=== PATIENT | male | born 1995 | race Two or more races ===

== ENCOUNTER → 2020-09-09 | Outpatient (CLI) | payer SELFPAY | END | disposition home or self-care (01) | LOC: LABWHC1 15:31 | PROVIDERS: ATTEND Family Medicine | DX: Z20.828 Contact with and (suspected) exposure to other viral communicable diseases (principal) | CPT/HCPCS: U0003; C9803 ==

== ENCOUNTER 2021-07-26 23:11 | Emergency (ER) | payer OTHER ==
[2021-07-26] MEDS ORDERED: SODIUM CHLORIDE 0.9% 1,000 ML IV STA (23:59)
[2021-07-27 00:48] LABS: Basophils # (A) 0.1 k/uL (0-0.2); Basophils % (A) 1 %; Eosinophils # (A) 0.1 k/uL (0-0.7); Eosinophils % (A) 1 %; HCT 43.3 % (39.0-53.0); HGB 14.4 gm/dL (13.0-17.5); Lymphocytes # (A) 1.3 k/uL (1.0-4.8); Lymphocytes % (A) 14 %; MCH 29.2 pg (25.0-35.0); MCHC 33.2 g/dL (31.0-37.0); MCV 87.9 fL (80.0-100.0); Mean Platelet Volume 9.1; Monocytes # (A) 0.6 k/uL (0-1.0); Monocytes % (A) 7 %; Neutrophils # (A) 7.1 k/uL (1.3-7.7); Neutrophils % (A) 77 %; Platelet Count 223 k/uL (150-450); RBC 4.92 m/uL (4.30-5.90); RDW 12.7 % (11.5-15.5); WBC 9.2 k/uL (3.8-10.6)
[2021-07-27 01:00] LABS: ALT 67 U/L (4-49); AST 43 U/L (17-59); African American GFR (CKD) >90 (>60 ml/min/1.73 sqM); Albumin 4.6 g/dL (3.5-5.0); Alcohol <10 mg/dL; Alkaline Phosphatase 104 U/L (38-126); Anion Gap 10 mmol/L; Blood Urea Nitrogen 8 mg/dL (9-20); Calcium 9.9 mg/dL (8.4-10.2); Carbon Dioxide 24 mmol/L (22-30); Chloride 100 mmol/L (98-107); Glucose 139 mg/dL (74-99); Non-African American GFR(CKD) >90 (>60 ml/min/1.73 sqM); Potassium 3.7 mmol/L (3.5-5.1); Sodium 134 mmol/L (137-145); Total Bilirubin 0.7 mg/dL (0.2-1.3); Total Protein 7.7 g/dL (6.3-8.2)
[2021-07-27 01:02] LABS: Appearance,Urine Clear (Clear); Bacteria,Urine Rare /hpf; Bilirubin,Urine Negative (Negative); Blood,Urine Negative (Negative); Color,Urine Light Yellow; Glucose,Urine (UA) Negative (Negative); Ketones,Urine Negative (Negative); Leukocyte Esterase,Urine Moderate (Negative); Nitrite,Urine Negative (Negative); Protein,Urine Negative (Negative); RBC,Urine <1 /hpf (0-5); Specific Gravity,Urine 1.005 (1.001-1.035); Squamous Epithelial Cell,Urine 1 /hpf (0-4); Urobilinogen,Urine <2.0 mg/dL (<2.0); WBC,Urine 12 /hpf (0-5)
[2021-07-27 01:05] VITALS: RESP 18
[2021-07-27 01:09] LABS: Amphetamine Screen,Urine Detected (NotDetected); Barbiturate Screen,Urine Not Detected (NotDetected); Benzodiazepines Screen,Urine Not Detected (NotDetected); Cocaine Screen,Urine Not Detected (NotDetected); Methadone Screen, Urine Not Detected (NotDetected); Opiate Screen,Urine Not Detected (NotDetected); Oxycodone Screen, Urine Not Detected (NotDetected); Phencyclidine Screen,Urine Not Detected (NotDetected); Tricyclic Antidepressant,Urine Not Detected (NotDetected); Urn Cannabinoid Scrn Detected (NotDetected)
--- NOTE | 2021-07-27 02:02 | ED ---
General Adult HPI - General Chief complaint: Dizziness Stated complaint: Dizziness Time Seen by Provider: 07/26/21 23:47 Source: patient, family, RN notes reviewed Mode of arrival: wheelchair Limitations: no limitations - History of Present Illness Initial comments: Patient is a 26-year-old male presenting to the emergency Department with complaints of some lightheadedness, dizziness, chest heaviness that started after smoking marijuana this evening. He states he also was drinking throughout the day, taking Adderall for the last few days. He states he is not prescribed Adderall. He drank about 5 drinks throughout the day. He denies any falls or trauma. He states he normally smokes marijuana but does not usually feel like this. He denies any pertinent past medical history, takes no medications. He denies any other drug use. He denies any chest pain at this time, no difficulty breathing. He denies any nausea or vomiting. No abdominal pain. He has no further complaints at this time. Upon arrival to the ER, his vitals are stable. - Related Data Previous Rx's Medication Instructions Recorded Cephalexin [Keflex] 500 mg PO Q6HR 7 Days #28 cap 07/27/21 Allergies Allergy/AdvReac Type Severity Reaction Status Date / Time No Known Allergies Allergy Verified 07/26/21 23:31 Review of Systems ROS Statement: Those systems with pertinent positive or pertinent negative responses have been documented in the HPI. ROS Other: All systems not noted in ROS Statement are negative. Past Medical History Past Medical History: No Reported History History of Any Multi-Drug Resistant Organisms: None Reported Past Surgical History: No Surgical Hx Reported Past Psychological History: No Psychological Hx Reported Smoking Status: Never smoker Past Alcohol Use History: Daily Past Drug Use History: Marijuana General Exam - General Exam Comments Initial Comments: GENERAL: Patient is well-developed and well-nourished. Patient is nontoxic and in no acute distress. HEAD: Atraumatic, normocephalic. EYES: Pupils equal round and reactive to light, extraocular movements intact, sclera anicteric, conjunctiva are normal. Eyelids were unremarkable. ENT: Nares patent, oropharynx clear without exudates. Moist mucous membranes. NECK: Normal range of motion, supple without lymphadenopathy or JVD. LUNGS: Unlabored respirations. Breath sounds clear to auscultation bilaterally and equal. No wheezes rales or rhonchi. HEART: Regular rate and rhythm without murmurs, rubs or gallops. ABDOMEN: Soft, nontender, normoactive bowel sounds. No guarding, no rebound. No masses appreciated. : Deferred MUSCULOSKELETAL: Normal extremities with adequate strength and normal range of motion, no pitting or edema. No clubbing or cyanosis. NEUROLOGICAL: Patient is alert and oriented x 3. Motor and sensory are also intact. Cranial nerves II through XII grossly intact. Symmetrical smile. Normal speech, normal gait. PSYCH: Normal mood, normal affect. SKIN: Warm, Dry, normal turgor, no rashes or lesions noted. Course Vital Signs 07/26/21 07/27/21 07/27/21 23:27 00:50 02:18 Temperature 98.5 F 97.9 F Pulse Rate 104 H 90 68 Respiratory 20 18 18 Rate Blood Pressure 163/95 142/82 132/84 O2 Sat by Pulse 99 99 98 Oximetry EKG Findings - EKG Comments: EKG Findings:: Normal sinus rhythm, normal ECG, no signs of acute process. Ventricular rate 90, AL interval 178, QT 358. Medical Decision Making - Medical Decision Making Patient is a 26-year-old male arriving with lightheadedness, dizziness and chest heaviness after he was smoking marijuana today. He also admits to drinking alcohol and taking Adderall for the last 2-3 days. He does not normally take Adderall, is not prescribed this. He denies any other drug use. At the time examination, he has no chest pain, no real complaints other than feeling "off." His vitals are stable, his exam is unremarkable, EKG shows normal sinus rhythm. Labs are all within normal limits, troponin is negative, urine did show moderate leukocyte Estrace, 12 wbc's and cleansed. I did send for urine culture. Denies any concerns for STDs, I did add on a cardiac and chlamydia just for thoroughness. I will start him on Keflex for possible UTI. Toxicology is positive for amphetamines and marijuana, serum alcohol is normal. Patient received some fluids and reports improvement of symptoms. I discussed with him to not combine drugs and to not take her prescription drugs that were not prescribed to him. He is agreeable to this. He is stable for discharge. Follow up with his family doctor. Return parameters were discussed with him and he verbalized understanding. Case discussed with Dr. Branch. - Lab Data Result diagrams: 07/27/21 00:37 07/27/21 00:37 Lab Results 07/27/21 07/27/21 07/27/21 Range/Units 00:37 00:37 00:37 WBC 9.2 (3.8-10.6) k/uL RBC 4.92 (4.30-5.90) m/uL Hgb 14.4 (13.0-17.5) gm/dL Hct 43.3 (39.0-53.0) % MCV 87.9 (80.0-100.0) fL MCH 29.2 (25.0-35.0) pg MCHC 33.2 (31.0-37.0) g/dL RDW 12.7 (11.5-15.5) % Plt Count 223 (150-450) k/uL MPV 9.1 Neutrophils % 77 % Lymphocytes % 14 % Monocytes % 7 % Eosinophils % 1 % Basophils % 1 % Neutrophils # 7.1 (1.3-7.7) k/uL Lymphocytes # 1.3 (1.0-4.8) k/uL Monocytes # 0.6 (0-1.0) k/uL Eosinophils # 0.1 (0-0.7) k/uL Basophils # 0.1 (0-0.2) k/uL Sodium 134 L (137-145) mmol/L Potassium 3.7 (3.5-5.1) mmol/L Chloride 100 (98-107) mmol/L Carbon Dioxide 24 (22-30) mmol/L Anion Gap 10 mmol/L BUN 8 L (9-20) mg/dL Creatinine 0.88 (0.66-1.25) mg/dL Est GFR (CKD-EPI)AfAm >90 (>60 ml/min/1.73 sqM) Est GFR (CKD-EPI)NonAf >90 (>60 ml/min/1.73 sqM) Glucose 139 H (74-99) mg/dL Calcium 9.9 (8.4-10.2) mg/dL Total Bilirubin 0.7 (0.2-1.3) mg/dL AST 43 (17-59) U/L ALT 67 H (4-49) U/L Alkaline Phosphatase 104 (38-126) U/L Troponin I (0.000-0.034) ng/mL Total Protein 7.7 (6.3-8.2) g/dL Albumin 4.6 (3.5-5.0) g/dL Urine Color Light Yellow Urine Appearance Clear (Clear) Urine pH 6.0 (5.0-8.0) Ur Specific [place] 1.005 (1.001-1.035) Urine Protein Negative (Negative) Urine Glucose (UA) Negative (Negative) Urine Ketones Negative (Negative) Urine Blood Negative (Negative) Urine Nitrite Negative (Negative) Urine Bilirubin Negative (Negative) Urine Urobilinogen <2.0 (<2.0) mg/dL Ur Leukocyte Esterase Moderate H (Negative) Urine RBC <1 (0-5) /hpf Urine WBC 12 H (0-5) /hpf Urine WBC Clumps Rare H (None) /hpf Ur Squamous Epith Cells 1 (0-4) /hpf Urine Bacteria Rare H (None) /hpf Urine Opiates Screen Not Detected (NotDetected) Ur Oxycodone Screen Not Detected (NotDetected) Urine Methadone Screen Not Detected (NotDetected) Ur Propoxyphene Screen Not Detected (NotDetected) Ur Barbiturates Screen Not Detected (NotDetected) U Tricyclic Antidepress Not Detected (NotDetected) Ur Phencyclidine Scrn Not Detected (NotDetected) Ur Amphetamines Screen Detected H (NotDetected) U Methamphetamines Scrn Not Detected (NotDetected) U Benzodiazepines Scrn Not Detected (NotDetected) Urine Cocaine Screen Not Detected (NotDetected) U Marijuana (THC) Screen Detected H (NotDetected) Serum Alcohol <10 mg/dL 07/27/21 Range/Units 00:37 WBC (3.8-10.6) k/uL RBC (4.30-5.90) m/uL Hgb (13.0-17.5) gm/dL Hct (39.0-53.0) % MCV (80.0-100.0) fL MCH (25.0-35.0) pg MCHC (31.0-37.0) g/dL RDW (11.5-15.5) % Plt Count (150-450) k/uL MPV Neutrophils % % Lymphocytes % % Monocytes % % Eosinophils % % Basophils % % Neutrophils # (1.3-7.7) k/uL Lymphocytes # (1.0-4.8) k/uL Monocytes # (0-1.0) k/uL Eosinophils # (0-0.7) k/uL Basophils # (0-0.2) k/uL Sodium (137-145) mmol/L Potassium (3.5-5.1) mmol/L Chloride (98-107) mmol/L Carbon Dioxide (22-30) mmol/L Anion Gap mmol/L BUN (9-20) mg/dL Creatinine (0.66-1.25) mg/dL Est GFR (CKD-EPI)AfAm (>60 ml/min/1.73 sqM) Est GFR (CKD-EPI)NonAf (>60 ml/min/1.73 sqM) Glucose (74-99) mg/dL Calcium (8.4-10.2) mg/dL Total Bilirubin (0.2-1.3) mg/dL AST (17-59) U/L ALT (4-49) U/L Alkaline Phosphatase (38-126) U/L Troponin I <0.012 (0.000-0.034) ng/mL Total Protein (6.3-8.2) g/dL Albumin (3.5-5.0) g/dL Urine Color Urine Appearance (Clear) Urine pH (5.0-8.0) Ur Specific [place] (1.001-1.035) Urine Protein (Negative) Urine Glucose (UA) (Negative) Urine Ketones (Negative) Urine Blood (Negative) Urine Nitrite (Negative) Urine Bilirubin (Negative) Urine Urobilinogen (<2.0) mg/dL Ur Leukocyte Esterase (Negative) Urine RBC (0-5) /hpf Urine WBC (0-5) /hpf Urine WBC Clumps (None) /hpf Ur Squamous Epith Cells (0-4) /hpf Urine Bacteria (None) /hpf Urine Opiates Screen (NotDetected) Ur Oxycodone Screen (NotDetected) Urine Methadone Screen (NotDetected) Ur Propoxyphene Screen (NotDetected) Ur Barbiturates Screen (NotDetected) U Tricyclic Antidepress (NotDetected) Ur Phencyclidine Scrn (NotDetected) Ur Amphetamines Screen (NotDetected) U Methamphetamines Scrn (NotDetected) U Benzodiazepines Scrn (NotDetected) Urine Cocaine Screen (NotDetected) U Marijuana (THC) Screen (NotDetected) Serum Alcohol mg/dL Disposition Clinical Impression: Lightheadedness, UTI (urinary tract infection) Disposition: HOME SELF-CARE Condition: Stable Instructions (If sedation given, give patient instructions): Dizziness (ED) Additional Instructions: Please return to the Emergency Department if symptoms worsen or any other concerns. Take antibiotic as prescribed. Discontinue use of multiple drugs. Follow-up with your family doctor. Prescriptions: Cephalexin [Keflex] 500 mg PO Q6HR 7 Days #28 cap Is patient prescribed a controlled substance at d/c from ED?: No Referrals: None,Stated [Primary Care Provider] - 1-2 days Time of Disposition: 02:02
[2021-07-27 02:20] VITALS: BP 132/84; PULSE 68; TEMP 97.9
[2021-07-28 13:32] LABS: C. trachomatis,PCR Negative (Neg,Equiv); Chlamydia trachomatis Source Urine; N. gonorrhoeae,PCR Negative (Neg,Equiv); Neisseria Source Urine
== END 2021-07-27 02:18 | disposition home or self-care (01) ==
LOC: EC 23:11
DX: R42 Dizziness and giddiness (principal); N39.0 Urinary tract infection, site not specified
CPT/HCPCS: 36415; 80053; 80306; 80320; 81001; 84484; 85025; 87086; 87491; 87591; 93005; 96360; 99284

== ENCOUNTER → 2021-08-28 | Outpatient (CLI) | payer BC ==
--- NOTE | 2021-08-29 08:32 | XR ---
Right knee HISTORY: Pain 3 views the right knee Bone mineralization, joint spaces, alignment are maintained with the exception of some possible mild joint space loss medially. There is mild spurring medial compartment. Suprapatellar increased density may be indicative of small joint effusion. IMPRESSION: There may be small joint effusion. Knee MRI may be of benefit. Mild osteoarthritic change is questioned.
== END ==
LOC: RADXRMAIN 17:03
PROVIDERS: ATTEND Family Medicine
DX: M25.561 Pain in right knee (principal)

== ENCOUNTER 2023-04-28 03:58 | Emergency (ER) | payer BC, OTHER ==
[2023-04-28 04:04] VITALS: TEMP 98
--- NOTE | 2023-04-28 04:44 | ED ---
Upper Extremity HPI - General Chief Complaint: Extremity Injury, Upper Stated Complaint: Shoulder dislocation Time Seen by Provider: 04/28/23 04:37 Source: patient, EMS Mode of arrival: EMS Limitations: no limitations - History of Present Illness Initial Comments: This patient is a 28-year-old man who presents to have evaluation of left shoulder injury. The patient states she had been drinking and then lost balance and fell. He states that he landed on the anterolateral aspect of the shoulder. He noted pain and swelling. Pain worse with movement of the left arm. Slightly better with supporting the left arm. No weakness or numbness into the hand or fingers area MD Complaint: Injury to:: left, shoulder -: minutes(s) Other Extremity Injury: Shoulder: Left Other Injuries: none Handedness: right Place: outdoors Improves With: none Worsens With: movement of extremity Context: fall Associated Symptoms: denies other symptoms - Related Data Previous Rx's Medication Instructions Recorded Cephalexin [Keflex] 500 mg PO Q6HR 7 Days #28 cap 07/27/21 HYDROcodone/APAP 5-325MG [[place] 1 tab PO Q4HR PRN 3 Days #18 tab 04/28/23 5-325] Ibuprofen [Motrin] 600 mg PO Q8HR PRN #20 tab 04/28/23 Allergies Allergy/AdvReac Type Severity Reaction Status Date / Time No Known Allergies Allergy Verified 07/26/21 23:31 Review of Systems ROS Statement: Those systems with pertinent positive or pertinent negative responses have been documented in the HPI. ROS Other: All systems not noted in ROS Statement are negative. Constitutional: Denies: fever, weakness Respiratory: Denies: cough, dyspnea Cardiovascular: Denies: chest pain, palpitations, syncope Gastrointestinal: Denies: abdominal pain, vomiting Musculoskeletal: Reports: as per HPI, arthralgia. Denies: back pain Neurological: Denies: headache, weakness, numbness, paresthesias Past Medical History Past Medical History: No Reported History History of Any Multi-Drug Resistant Organisms: None Reported Past Surgical History: No Surgical Hx Reported Past Psychological History: No Psychological Hx Reported Smoking Status: Never smoker Past Alcohol Use History: Heavy Past Drug Use History: Marijuana General Exam Limitations: no limitations General appearance: alert, in no apparent distress Head exam: Present: atraumatic, normocephalic Eye exam: Present: normal appearance. Absent: scleral icterus, conjunctival injection Neck exam: Present: normal inspection, full ROM. Absent: tenderness Respiratory exam: Present: normal lung sounds bilaterally. Absent: respiratory distress, wheezes, rales, rhonchi, stridor, chest wall tenderness, accessory muscle use Cardiovascular Exam: Present: regular rate, normal rhythm, normal heart sounds. Absent: systolic murmur, diastolic murmur, rubs, gallop GI/Abdominal exam: Present: soft. Absent: distended, tenderness, guarding, rebound, rigid, mass Extremities exam: Present: tenderness, normal capillary refill, other (The patient has deformity that appears to be before meals separation. There is tenderness at the before meals joint. There is no bony tenderness or deformity of the humerus. The patient does tolerate rotation at the humerus. Neurovascular exam of the left upper extremity is normal). Absent: full ROM Back exam: Present: normal inspection. Absent: vertebral tenderness Neurological exam: Present: alert. Absent: motor sensory deficit Skin exam: Present: warm, dry, intact, normal color. Absent: rash Course Vital Signs 04/28/23 04/28/23 04:00 05:38 Temperature 98.0 F 98.0 F Pulse Rate 81 85 Respiratory 16 18 Rate Blood Pressure 131/76 128/79 O2 Sat by Pulse 97 99 Oximetry Medical Decision Making - Medical Decision Making The patient had left shoulder x-ray which does show before meals joint separation, by my interpretation Was pt. sent in by a medical professional or institution ([facility], [facility], urgent care, hospital, or skilled nursing...) When possible be specific @ -[No] Did you speak to anyone other than the patient for history (EMS, parent, family, police, friend...)? What history was obtained from this source @ -[No] Did you review nursing and triage notes (agree or disagree)? Why? @ -[I reviewed and agree with nursing and triage notes] Were old charts reviewed (outside hosp., previous admission, EMS record, old EKG, old radiological studies, urgent care reports/EKG's, skilled nursing records)? Report findings @ -[No old charts were reviewed] Differential Diagnosis (chest pain, altered mental status, abdominal pain women, abdominal pain men, vaginal bleeding, weakness, fever, dyspnea, syncope, headache, dizziness, GI bleed, back pain, seizure, CVA, palpatations, mental health, musculoskeletal)? @ -[Differential Musculoskeletal Muscular strain, contusion, ligament sprain, fracture, arthritis, septic arthritis, bursitis, cellulitis, muscle spasm, nerve compression, DVT, arterial occlusion, herpes zoster, electrolyte abnormality, tumor.... This is not meant to be in all inclusive list EKG interpreted by me (3pts min.). @ -[ X-rays interpreted by me (1pt min.). @ -[I interpreted as above CT interpreted by me (1pt min.). @ -[None done] U/S interpreted by me (1pt. min.). @ -[None done] What testing was considered but not performed or refused? (CT, X-rays, U/S, labs)? Why? @ -[None] What meds were considered but not given or refused? Why? @ -[None] Did you discuss the management of the patient with other professionals (professionals i.e. , PA, [facility], lab, RT, psych nurse, clinical social work aide, kitchen aide, teacher, seismology technical officer, home health care case manager)? Give summary @ -[No] Was smoking cessation discussed for >3mins.? @ -[No] Was critical care preformed (if so, how long)? @ -[No] Were there social determinants of health that impacted care today? How? (Homelessness, low income, unemployed, alcoholism, drug addiction, transportation, low edu. Level, literacy, decrease access to med. care, assisted, rehab)? @ -[No] Was there de-escalation of care discussed even if they declined (Discuss DNR or withdrawal of care, Hospice)? DNR status @ -[No] What co-morbidities impacted this encounter? (DM, HTN, Smoking, COPD, CAD, Cancer, CVA, ARF, Chemo, Hep., AIDS, mental health diagnosis, sleep apnea, morbid obesity)? @ -[None] Was patient admitted / discharged? Hospital course, mention meds given and route, prescriptions, significant lab abnormalities, going to OR and other pertinent info. @ -[The patient is discharged to follow-up with orthopedics as outpatient. We discussed appropriate return parameters and follow-up Undiagnosed new problem with uncertain prognosis? @ -[No] Drug Therapy requiring intensive monitoring for toxicity (Heparin, Nitro, Insulin, Cardizem)? @ -[No] Were any procedures done? @ -[No] Diagnosis/symptom? @ -[Acute fall injury Acute before meals joint separation, left Acute, or Chronic, or Acute on Chronic? @ -[default] Uncomplicated (without systemic symptoms) or Complicated (systemic symptoms)? @ -[Uncomplicated Side effects of treatment? @ -[No] Exacerbation, Progression, or Severe Exacerbation? @ -[No] Poses a threat to life or bodily function? How? (Chest pain, [place], [place], pneumonia, PE, COPD, DKA, ARF, appy, cholecystitis, CVA, Diverticulitis, Homicidal, Suicidal, threat to staff... and all critical care pts) @ -[No] Disposition Clinical Impression: Shoulder separation Disposition: HOME SELF-CARE Condition: Good Instructions (If sedation given, give patient instructions): Acromioclavicular Separation (ED) Prescriptions: Ibuprofen [Motrin] 600 mg PO Q8HR PRN #20 tab PRN Reason: Pain HYDROcodone/APAP 5-325MG [[place] 5-325] 1 tab PO Q4HR PRN 3 Days #18 tab PRN Reason: Pain Is patient prescribed a controlled substance at d/c from ED?: No Referrals: Andrzej Kendall MD [STAFF PHYSICIAN] - 1-2 days Yaniv Ma DO [Doctor of Osteopathic Medicine] - 1-2 days
--- NOTE | 2023-04-28 04:53 | XR ---
EXAM: XR Left Shoulder Complete, 2 or More Views CLINICAL HISTORY: ITS.REASON XR Reason: fall, deformity TECHNIQUE: Two or more views of the left shoulder. COMPARISON: No relevant prior studies available. FINDINGS: Bones/joints: AC separation with superior migration of the clavicle relative to the acromion. Significant widening of the coracoclavicular joint (23 mm). Anatomic alignment of the glenohumeral joint. No acute fracture. Soft tissues: Unremarkable. IMPRESSION: AC separation with CC disruption (grade 5 separation)
[2023-04-28] MEDS ORDERED: Acetaminophen-Codeine 300-30mg TAB PO STA (04:59)
[2023-04-28] MEDS ORDERED: IBUPROFEN 600 MG TAB PO STA (04:59)
[2023-04-28 05:40] VITALS: BP 128/79; PULSE 85; RESP 18
== END 2023-04-28 05:40 | disposition home or self-care (01) ==
LOC: EC 03:58
DX: S43.005A Unspecified dislocation of left shoulder joint, initial encounter (principal); F12.90 Cannabis use, unspecified, uncomplicated; W19.XXXA Unspecified fall, initial encounter
CPT/HCPCS: 99284

== ENCOUNTER 2024-08-02 15:48 | Emergency (ER) | payer OTHER ==
[2024-08-02 15:52] VITALS: PULSE 74
--- NOTE | 2024-08-02 16:07 | ED ---
Lower Extremity Injury HPI - General Chief Complaint: Extremity Injury, Lower Stated Complaint: R knee pain Time Seen by Provider: 08/02/24 16:01 Source: patient, RN notes reviewed Mode of arrival: wheelchair Limitations: no limitations - History of Present Illness Initial Comments: 29-year-old male presents emergency department chief complaint of right knee pain. States that last week he was standing on a stepstool at work and he went to step down and stepped on a saw that was on the ground which caused him to twist his right knee. He denies any injuries at the time of this event. Over the past week he has been experiencing worsening pain in the right knee that is exacerbated with prolonged standing and with flexion and climbing stairs. He h as been taking Motrin and occasionally Tylenol at home with some relief. Patient was supposed to have an appointment today with research quality assurance specialist outpatient however when he arrived for his appointment he was informed that they do not take his insurance. Additionally, patient states that he has had meniscus injuries to his right knee in the past with no previous surgeries. - Related Data Previous Rx's Medication Instructions Recorded Cephalexin [Keflex] 500 mg PO Q6HR 7 Days #28 cap 07/27/21 HYDROcodone/APAP 5-325MG [[place] 1 tab PO Q4HR PRN 3 Days #18 tab 04/28/23 5-325] Ibuprofen [Motrin] 600 mg PO Q8HR PRN #20 tab 04/28/23 Allergies Allergy/AdvReac Type Severity Reaction Status Date / Time No Known Allergies Allergy Verified 08/02/24 15:52 Review of Systems ROS Statement: Those systems with pertinent positive or pertinent negative responses have been documented in the HPI. ROS Other: All systems not noted in ROS Statement are negative. Past Medical History Past Medical History: No Reported History History of Any Multi-Drug Resistant Organisms: None Reported Past Surgical History: No Surgical Hx Reported Past Psychological History: No Psychological Hx Reported Smoking Status: Never smoker Past Alcohol Use History: Heavy Past Drug Use History: Marijuana General Exam Limitations: no limitations General appearance: alert, in no apparent distress ENT exam: Present: normal exam, mucous membranes moist Neck exam: Present: normal inspection. Absent: tenderness, meningismus, lymphadenopathy Respiratory exam: Present: normal lung sounds bilaterally. Absent: respiratory distress, wheezes, rales, rhonchi, stridor Cardiovascular Exam: Present: regular rate, normal rhythm, normal heart sounds. Absent: systolic murmur, diastolic murmur, rubs, gallop, clicks GI/Abdominal exam: Present: soft, normal bowel sounds. Absent: distended, tenderness, guarding, rebound, rigid Right Knee exam: Present: normal inspection, full ROM (pain with ROM), tenderness (medial knee), pain/laxity with valgus, pain/laxity with varus Neurovascular tendon exam: Present: no vascular compromise. Absent: pulse deficit, abnormal cap refill Gait: observed and normal Back exam: Present: normal inspection Skin exam: Present: warm, dry, intact, normal color. Absent: rash Course Vital Signs 08/02/24 08/02/24 15:49 17:43 Temperature 97.8 F 98.4 F Pulse Rate 74 74 Respiratory 18 16 Rate Blood Pressure 117/73 120/80 O2 Sat by Pulse 97 98 Oximetry Medical Decision Making - Medical Decision Making Was pt. sent in by a medical professional or institution (, PA, HAND PATCHER, urgent care, hospital, or half-way...) When possible be specific @ -No Did you speak to anyone other than the patient for history (EMS, parent, family, police, friend...)? What history was obtained from this source @ -No Did you review nursing and triage notes (agree or disagree)? Why? @ -I reviewed and agree with nursing and triage notes Were old charts reviewed (outside hosp., previous admission, EMS record, old EKG, old radiological studies, urgent care reports/EKG's, half-way records)? Report findings @ -No old charts were reviewed Differential Diagnosis (chest pain, altered mental status, abdominal pain women, abdominal pain men, vaginal bleeding, weakness, fever, dyspnea, syncope, headache, dizziness, GI bleed, back pain, seizure, CVA, palpatations, mental health, musculoskeletal)? @ -Differential Musculoskeletal Muscular strain, contusion, ligament sprain, fracture, arthritis, septic arthritis, bursitis, cellulitis, muscle spasm, nerve compression, DVT, arterial occlusion, herpes zoster, electrolyte abnormality, tumor.... This is not meant to be in all inclusive list EKG interpreted by me (3pts min.). @ -none X-rays interpreted by me (1pt min.). @ -XR the right knee no acute fracture dislocation with a small suprapatellar effusion. CT interpreted by me (1pt min.). @ -None done U/S interpreted by me (1pt. min.). @ -None done What testing was considered but not performed or refused? (CT, X-rays, U/S, labs)? Why? @ -None What meds were considered but not given or refused? Why? @ -None Did you discuss the management of the patient with other professionals (professionals i.e. , PA, HAND PATCHER, lab, RT, psych nurse, social service liaison, wax pumper, teacher, [place] police officer, classification case manager)? Give summary @ -No Was smoking cessation discussed for >3mins.? @ -No Was critical care preformed (if so, how long)? @ -No Were there social determinants of health that impacted care today? How? (Homelessness, low income, unemployed, alcoholism, drug addiction, transportation, low edu. Level, literacy, decrease access to med. care, care home, rehab)? @ -No Was there de-escalation of care discussed even if they declined (Discuss DNR or withdrawal of care, Hospice)? DNR status @ -No What co-morbidities impacted this encounter? (DM, HTN, Smoking, COPD, CAD, Cancer, CVA, ARF, Chemo, Hep., AIDS, mental health diagnosis, sleep apnea, morbid obesity)? @ -None Was patient admitted / discharged? Hospital course, mention meds given and route, prescriptions, significant lab abnormalities, going to OR and other pertinent info. @ -discharged. 29-year-old male with right knee pain. Patient's pain is exac erbated with valgus and varus stress/to palpation of the medial knee. Patient's pain is exacerbated with ambulation. And flexion as well. There are no neurovascular deficits. Patient provided dose of Toradol pending x-ray imaging results. He is agree with this plan. X-ray negative for acute process. Open the patient follows up with primary care provider or research quality assurance specialist for further evaluation for potential MRI for further evaluation of the soft tissue. All questions answered at bedside and strict return parameters discussed with the patient he is verbalized understanding. Patient is provided with a work note as well. Discussed with Dr. Galvan Undiagnosed new problem with uncertain prognosis? @ -No Drug Therapy requiring intensive monitoring for toxicity (Heparin, Nitro, Insulin, Cardizem)? @ -No Were any procedures done? @ -No Diagnosis/symptom? @ -Right knee pain Acute, or Chronic, or Acute on Chronic? @ -Acute Uncomplicated (without systemic symptoms) or Complicated (systemic symptoms)? @ -Uncomplicated Side effects of treatment? @ -No Exacerbation, Progression, or Severe Exacerbation? @ -No Poses a threat to life or bodily function? How? (Chest pain, [place], [place], pneumonia, PE, COPD, DKA, ARF, appy, cholecystitis, CVA, Diverticulitis, Homicidal, Suicidal, threat to staff... and all critical care pts) @ -No Disposition Clinical Impression: Knee pain, acute Disposition: HOME SELF-CARE Condition: Good Instructions (If sedation given, give patient instructions): Knee Pain (ED) Additional Instructions: Please return to the Emergency Department if symptoms worsen or any other concerns. Recommend follow-up outpatient primary care provider for further evaluation and possible scheduled for MRI for further evaluation of the soft tissue of the right knee. Is patient prescribed a controlled substance at d/c from ED?: No Referrals: Andrzej Kendall MD [Primary Care Provider] - 1-2 days Bin Forrest MD [STAFF PHYSICIAN] - 1-2 days Time of Disposition: 17:21
[2024-08-02] MEDS: KETOROLAC 15 MG/ML 1 ML VIAL IM STA (16:21)
--- NOTE | 2024-08-02 17:11 | XR ---
Evaluation EXAMINATION TYPE: XR knee complete RT DATE OF EXAM: 08/02/2024 CLINICAL HISTORY: Is TECHNIQUE: Three views of the right knee are obtained. COMPARISON: None. FINDINGS: There is no acute fracture/dislocation. The tri-compartment joint spaces appear within no rmal limits. The overlying soft tissue appears unremarkable. Small suprapatellar effusion. IMPRESSION: There is no acute fracture or dislocation.ICD 10 NO FRACTURE, INITIAL EVALUATION [facility], , 08/02/2024 5:09 PM
[2024-08-02 17:44] VITALS: BP 120/80; RESP 16; TEMP 98.4
== END 2024-08-02 17:44 | disposition home or self-care (01) ==
LOC: EC 15:48
CPT/HCPCS: 96372; 99282

== ENCOUNTER → 2024-08-14 | Outpatient (CLI) | payer MEDICARE ==
--- NOTE | 2024-08-14 22:36 | MR ---
EXAMINATION TYPE: MR knee RT wo con DATE OF EXAM: 08/14/2024 COMPARISON: Right knee x-ray August 02, 2024 HISTORY: Right knee pain for 1 month due to stepping on saw while coming down ladder. TECHNIQUE: Multiplanar, multisequence images of the knee is performed without IV contrast. FINDINGS: MEDIAL MENISCUS: Anterior and posterior horns are intact without tear. LATERAL MENISCUS: Anterior and posterior horns are intact without tear. CRUCIATE LIGAMENTS: The posterior cruciate ligaments is intact and unremarkable. Nonvisualization of normal anterior cruciate ligament consistent with complete tear. COLLATERAL LIGAMENTS: The medial collateral ligament and lateral collateral ligament complex are inta ct. Mild fluid signal surrounds medial collateral ligament particularly deeper fibers. EXTENSOR MECHANISM: Visualized quadriceps and patellar tendons are intact. EFFUSION: Moderate to large sized suprapatellar joint effusion. POPLITEAL CYST: No popliteal/yanez cyst. TRICOMPARTMENT SPACES: Tricompartment Joint spaces are preserved. No significant spurring is seen. CARTILAGE: Tricompartmental articular cartilage is maintained. BONE MARROW SIGNAL: Tiny subchondral cyst anterior central proximal tibia sagittal image 15. OTHER: Moderate superficial infrapatellar subcutaneous edema. IMPRESSION: 1. Complete ACL tear. 2. Moderate to large-sized suprapatellar joint effusion. 3. Mild MCL sprain injury. [facility], , 08/14/2024 10:34 PM
== END | disposition home or self-care (01) ==
LOC: RADMRIMAIN 17:54
PROVIDERS: ATTEND Orthopaedic Surgery

== ENCOUNTER → 2024-10-07 | Outpatient (CLI) | payer MEDICARE ==
[2024-10-08 08:56] LABS: Anion Gap 9.3 mmol/L (4.00-12.00); Carbon Dioxide 26.7 mmol/L (21.6-31.8); Potassium 4.6 mmol/L (3.5-5.5)
[2024-10-08 10:04] LABS: Basophils # (A) 0.04 X 10*3/uL (0.00-0.10); Basophils % (A) 0.6 %; Eosinophils % (A) 1.6 %; HCT 44.1 % (39.6-50.0); HGB 14.3 g/dL (13.0-17.0); Lymphocytes # (A) 2.23 X 10*3/uL (0.90-5.00); Lymphocytes % (A) 36.1 %; MCH 29.3 pg (27.0-32.0); MCHC 32.4 g/dL (32.0-37.0); MCV 90.4 FL (80.0-97.0); Mean Platelet Volume 12.5 FL (9.5-12.2); Monocytes # (A) 0.65 X 10*3/uL (0.20-1.00); Monocytes % (A) 10.5 %; NRBC Per 100 WBC 0 X 10*3/uL (0.00-0.01); Neutrophils # (A) 3.14 X 10*3/uL (1.80-7.70); Neutrophils % (A) 50.9 %; Platelet Count 239 X 10*3/uL (140-440); RBC 4.88 X 10*6/uL (4.40-5.60); RDW 12.5 % (11.5-14.5); WBC 6.18 X 10*3/uL (4.50-10.00)
== END | disposition home or self-care (01) ==
LOC: LABWHC1 09:44
PROVIDERS: ATTEND Orthopaedic Surgery
DX: Z01.812 Encounter for preprocedural laboratory examination (principal); S83.511A Sprain of anterior cruciate ligament of right knee, initial encounter; X58.XXXA Exposure to other specified factors, initial encounter
CPT/HCPCS: 36415; 80051; 85025

== ENCOUNTER 2024-10-12 07:58 | Day surgery (SDC) | payer MEDICARE ==
--- NOTE | 2024-10-12 04:34 | HP ---
HISTORY AND PHYSICAL DATE OF SURGERY: 10/12/2024. HISTORY OF PRESENT ILLNESS: Bruno Arredondo is a 29-year-old gentleman seen with right knee ACL tear. We discussed options regarding treatment. He elected to proceed with right knee arthroscopy to include allograft ACL reconstruction. Consent was obtained. PAST MEDICAL HISTORY: Noncontributory. PAST SURGICAL HISTORY: Noncontributory. DAILY MEDICATIONS: 1. Motrin. 2. Tylenol. ALLERGIES: None. SOCIAL HISTORY: Denies tobacco use. PHYSICAL EVALUATION OF THE RIGHT KNEE: His range of motion is -2/3 to 110 degrees, tenderness, medial joint line. +2 to 3 Karma, no endpoint, +1 MCL, solid endpoint. Distal neurovascular exam intact. IMAGING STUDIES: Right knee radiographs revealed an effusion. MRI of right knee revealed ACL tear. IMPRESSION: Internal derangement of right knee with ACL tear. PLAN: Right knee arthroscopy with allograft ACL reconstruction and debridement. MMODL / IJN: [id number] /
[2024-10-12] MEDS ORDERED: LIDOCAINE 1% (10MG/ML) FOR IV START INTRADERMA PRN (08:05)
[2024-10-12] MEDS ORDERED: fentaNYL (PF) 50 MCG/ML 2 ML AMP IVP PRN (08:05)
[2024-10-12] MEDS: IV FLUID CONTINUATION 1,000 ML IV ONE (08:12)
[2024-10-12] MEDS: LACTATED RINGERS 1,000 ML IV SCH (08:35)
[2024-10-12] MEDS: ONDANSETRON 4 MG/2 ML VIAL IVP ONE (08:35)
[2024-10-12] MEDS: DEXAMETHASONE SOD PHOSPHATE 4 MG/ML 1 ML VIAL IV ONE (08:35)
[2024-10-12] MEDS: MIDAZOLAM 2 MG/2 ML VIAL IV PRN (09:13)
[2024-10-12] MEDS ORDERED: ROPIVACAINE 5 MG/ML 30 ML VIAL ONE (09:25)
[2024-10-12] MEDS ORDERED: SUCCINYLCHOLINE CHLORIDE 200 MG/10 ML VIAL IV ONE (09:25)
[2024-10-12] MEDS ORDERED: LIDOCAINE 1% INJ 10MG/ML (20 ML MDV) ONE (09:25)
[2024-10-12] MEDS ORDERED: DEXAMETHASONE SOD PHOSPHATE 4 MG/ML 1 ML VIAL ONE (09:25)
[2024-10-12] MEDS ORDERED: fentaNYL (PF) 50 MCG/ML 2 ML AMP ONE (09:25)
[2024-10-12] MEDS ORDERED: KETAMINE HCL IN 0.9 % NACL 50 MG/5 ML SYRINGE ONE (09:25)
[2024-10-12] MEDS ORDERED: MIDAZOLAM 2 MG/2 ML VIAL ONE (09:25)
[2024-10-12] MEDS ORDERED: PROPOFOL 10 MG/ML 20 ML VIAL IV ONE (09:25)
[2024-10-12] MEDS: LACTATED RINGERS 1,000 ML IV ONE (11:14)
--- NOTE | 2024-10-12 11:21 | P.OP ---
Date of Procedure: 10/12/24 Preoperative Diagnosis: Internal derangement right knee Postoperative Diagnosis: 1. ACL tear right knee 2. Medial and lateral meniscal tears right knee 3. Reactive synovitis medial, lateral and suprapatellar compartments right knee Procedure(s) Performed: 1. Arthroscopic allograft anterior cruciate ligament reconstruction right knee 2. Arthroscopic partial medial and lateral meniscectomy right knee 3. Arthroscopic partial synovectomy medial, lateral and suprapatellar compartments right knee Implants: 2Arthrex Endobutton's Anesthesia: EDILBERTO, local Surgeon: Neto Valdez Sheriff #1: Dami Funes Estimated Blood Loss (ml): 15 Pathology: none sent Condition: stable Disposition: PACU Indications for Procedure: 29-year-old patient seen with progressive right knee instability and pain. He had a history of ACL tear and resultant significant symptomatic instability. After having discussion regarding treatment he elected to proceed with arthroscopy to include allograft ACL reconstruction. Operative Findings: See description of procedure Description of Procedure: Patient was taken to the operative suite. Patient underwent a general anesthetic by the department of anesthesia. Patient was given preoperative antibiotics. The right lower extremity was placed in a well-padded arthroscopic leg sandoval. The right leg was prepped and draped in the normal sterile orthopedic fashion. A lateral parapatellar and suprapatellar incision was made. Trochars were inserted. Arthroscopy was initiated. Suprapatellar pouch revealed diffuse thick reactive synovitis. The patellofemoral joint appeared to articulate congruently. There was early grade I chondromalacia without significant tearing. The scope was guided into the medial gutter. No loose bod ies or plica identified. The scope was then guided into the medial compartment. A medial parapatellar incision was made. Trocar inserted followed by probe. Radial tear posterior medial meniscus was evident. There was no chondromalacia present there was some reactive synovitis anteriorly. Scope and probe were then guided into the intercondylar notch. There was an obvious complete ACL tear. The PCL appeared intact. At this point we opened up an allograft and Mani FORTE began preparing that for implantation. I guided the scope back into the medial compartment. I performed a partial medial meniscectomy getting down to stable meniscal tissue. I performed a partial synovectomy decompressing the reactive synovitis. The residual meniscus was probed and was found to be stable. There was good decompression of the synovitis.. The scope and probe were then guided into lateral compartment. There was a radial tear lateral meniscus mid body area. There was thick reactive synovitis anteriorly. There was no significant chondromalacia. I performed a partial lateral meniscectomy getting down to stable meniscal tissue. I performed a partial synovectomy decompressing the reactive synovitis. The residual meniscus was stable. There was good decompression of the synovitis. I guided the scope back into the intercondylar notch. I debrided the remnant of the ACL tear. I performed a notchplasty as the patient did have a very tight notch. The PCL was intact. At this point the graft was ready for implantation. I with the assistance of Mani FORTE created all inside femoral and tibial tunnels. Shell sutures were passed through the cells. The graft was now brought to the operative field. I shuttled the femoral side of the graft into our femoral tunnel flipping the Endobutton along the lateral cortex and then getting about 20 mm of graft in the tunnel. We now shuttled the tibial side of the graft into the tibial tunnel and pulled it down and secured it. We had nice positioning of the graft. We had good range of motion of the knee with full extension. We now took the knee into full extension. The scope was removed from the joint. We now extended our m edial incision and introduced an Endobutton securing the tibial side of our graft. We did incorporate internal brace and secured that to her proximal tibia utilizing a 4.75 swivel lock anchor. Residual suture limbs were clipped. We now put the scope back into the joint. We noted the ACL. Allograft to be in excellent position providing excellent stability about the knee. The scope was in guided back into the suprapatellar compartment. I reduced a motorized shaver into the supra compartment. I performed a partial synovectomy. The shaver was removed. There was good decompression of the synovitis. I now took a look around the entire knee 1 more time and I noted no residual debris. Instruments were now removed from the joint. The joint was infiltrated with .25% Marcaine. Both the portal sites and then many medial incision were repaired with nylon suture. Sterile dressings were applied. The patient was placed into a soft knee immobilizer. No tourniquet was utilized. Mani FORTE assisted in all aspects of this procedure. The patient was awakened, transferred to a bed and taken to recovery stable satisfactory condition.
[2024-10-12 11:45] VITALS: TEMP 96.8
[2024-10-12 11:47] VITALS: RESP 18
[2024-10-12] MEDS: HYDROmorphone 0.5 MG/0.5 ML SYRINGE IVP PRN (12:12)
[2024-10-12] MEDS: HYDROcodone/APAP 7.5-325MG 1 EACH TAB PO PRN (13:26)
[2024-10-12 14:06] VITALS: BP 115/74; PULSE 69
--- NOTE | 2024-10-12 17:52 | P.ANPRN ---
Procedure Note - Anesthesia - Nerve Block Performed Right Adductor Canal Single Time Out Performed: Yes Date of Procedure: 10/12/24 Procedure Start Time: :13 Procedure Stop Time: 09:16 Location of Patient: PreOp Indication: Acute Post-Operative Pain, Requested by Surgeon Sedation Type: Sedate with meaningful contact maintained Preparation: Sterile Prep Position: Supine Needle Types: Pajunk Needle Gauge: 21 Ultrasound used to visualize needle placement: Yes Ultrasound used to observe medication spread: Yes Blood Aspirated: No Pain Paresthesia on Injection Noted: No Resistance on Injection: Normal Image Stored and Saved: Yes Events: Uneventful and Well Tolerated (Ropivacaine 0.5% 20 cc plus dexamethasone 4 mg)
== END 2024-10-12 14:45 | disposition home or self-care (01) ==
LOC: OR 07:58
PROVIDERS: ATTEND Orthopaedic Surgery
DX: S83.281A Other tear of lateral meniscus, current injury, right knee, initial encounter (principal); S83.242A Other tear of medial meniscus, current injury, left knee, initial encounter; S83.511A Sprain of anterior cruciate ligament of right knee, initial encounter; G89.18 Other acute postprocedural pain; M65.961 Unspecified synovitis and tenosynovitis, right lower leg; X58.XXXA Exposure to other specified factors, initial encounter
CPT/HCPCS: 29880; 29888; 64447; J2250; J1100; J0690; J2405; J1171